=== PATIENT | male | born 1960 | race Caucasian/White ===

== ENCOUNTER 2020-01-09 10:32 | Day surgery (SDC) | payer BC ==
[2020-01-09] VITALS (9 sets, daily range): BP systolic 108–123; BP diastolic 57–89
[~2020-01-09] VITALS: Ht 180.3 cm; Wt 105.4 kg
[2020-01-09] MEDS ORDERED: normal saline 1,000 ML IV SCH ×2 (10:55→15:55)
[2020-01-09] MEDS ORDERED: diphenhydrAMINE 25mg capsule PO PRN (10:55)
[2020-01-09] MEDS ORDERED: LISI10TA4 PO (10:56)
[2020-01-09] MEDS ORDERED: ASPI-611 PO (11:04)
[2020-01-09 11:15] LABS: BASOPHILS % (AUTO) 0.5 % (0-1); EOSINOPHILS # (AUTO) 0.2 X10'3 (0-0.9); EOSINOPHILS % (AUTO) 2.5 % (0-6); HEMATOCRIT 49.1 % (42.0-52.0); HEMOGLOBIN 16.6 g/dl (14.0-17.9); LYMPHOCYTES # (AUTO) 2.2 X10'3 (1.1-4.8); LYMPHOCYTES % (AUTO) 30.1 % (21-51); MEAN CORPUSCULAR HGB CONC 33.9 g/dL (33.0-36.5); MEAN CORPUSCULAR VOLUME 91.5 FL (78-98); MEAN PLATELET VOLUME 9.5 FL (7.4-10.4); MONOCYTES # (AUTO) 0.5 X10'3 (0-0.9); MONOCYTES % (AUTO) 6.8 % (2-12); NEUTROPHILS # (AUTO) 4.4 X10'3 (1.8-7.7); NEUTROPHILS % (AUTO) 60.1 % (42-75); PLATELET COUNT 192 X10'3 (140-440); RED BLOOD COUNT 5.37 X10'6 (4.70-6.10); RED CELL DISTRIBUTION WIDTH 13.7 % (11.5-14.5); WHITE BLOOD COUNT 7.3 X10'3 (4.5-11.0)
[2020-01-09 11:28] LABS: ALBUMIN 4.1 G/DL (3.4-5.0); ANION GAP 9 (8-16); BLOOD UREA NITROGEN 13 MG/DL (7-18); BUN/CREATININE RATIO 11.9 (5.4-32.0); CHLORIDE 106 MMOL/L (99-107); CREATININE 1.09 MG/DL (0.60-1.10); GLUCOSE 109 MG/DL (70-104); MAGNESIUM 2.3 MG/DL (1.5-2.4); SODIUM 142 MMOL/L (135-145); TOTAL CARBON DIOXIDE 26.7 MMOL/L (24-32); eGFR 70 ML/MIN
[2020-01-09] MEDS ORDERED: iohexol 350MG/ML 100ml bottle IV ONE (14:23)
[2020-01-09] MEDS ORDERED: heparin 1,000unit/ml 10ml vial 10 ML ONE (14:23)
[2020-01-09] MEDS ORDERED: LIDOcaine 1% (10mg/ml)w/preservative injection 20ml MDV ONE (14:23)
[2020-01-09] MEDS ORDERED: midazolam 2 mg/2 ml injection ONE (14:23)
[2020-01-09] MEDS ORDERED: fentaNYL/PF 50MCG/1 ML 2ML syringe ONE (14:23)
[2020-01-09] MEDS ORDERED: iohexol 350 MG/ML 50ML vial IV ONE (14:23)
[2020-01-09] MEDS ORDERED: ondansetron/PF 4mg/2ml inj IV PRN (15:55)
[2020-01-09] MEDS ORDERED: HYDROcodone/acetaminophen 5mg/325mg tablet PO PRN (15:55)
[2020-01-09] MEDS ORDERED: HYDROcodone/acetaminophen 10/325mg tab PO PRN (15:55)
[2020-01-09] MEDS ORDERED: proCHLORperazine 10 MG/2 ml inj IV PRN (15:55)
== END 2020-01-09 18:30 | disposition home or self-care (01) ==
LOC: SSTAY O 10:32
PROVIDERS: ATTEND Internal Medicine Cardiovascular Disease
DX: R94.39 Abnormal result of other cardiovascular function study (principal); I25.10 Atherosclerotic heart disease of native coronary artery without angina pectoris; I10 Essential (primary) hypertension; Z79.01 Long term (current) use of anticoagulants; Z79.899 Other long term (current) drug therapy; Z79.82 Long term (current) use of aspirin
CPT/HCPCS: 36415; 80048; 83735; 85025; 85610; 93005; 93458; 99152; C1760; C1769; C1894; J1644; J2001; J2250; J3010; J7030; Q0163; Q9967; A4620; A6258

== ENCOUNTER 2023-12-20 08:33 | Inpatient (IN) | payer MEDICARE, MEDICAID ==
[2023-12-20] VITALS (17 sets, daily range): BP systolic 100–143; BP diastolic 61–79; PULSE 60–100; RESP 11–19; TEMP 96.8–98.4; O2SAT 92–100
[~2023-12-20] VITALS: Ht 180.3 cm; Wt 79.5 kg
[~2023-12-20 08:33] MED LIST: ASPI-611 PO; LISI10TA27 PO
[2023-12-20] MEDS ORDERED: OMEP20CA16 PO (08:38)
[2023-12-20] MEDS ORDERED: ALBU8HFA PO (09:02)
[2023-12-20] MEDS: HYDROmorphone 1 mg/ml syringe IV ONE ×2 (09:34→10:28)
[2023-12-20] MEDS: ondansetron/PF 4mg/2ml inj IV ONE (09:42)
[2023-12-20] MEDS: normal saline 1000ml 1,000 ML IV ONE (09:42)
[2023-12-20 09:45] LABS: BASOPHILS # (AUTO) 0.1 X10'3 (0-0.2); BASOPHILS % (AUTO) 0.3 % (0-1); EOSINOPHILS % (AUTO) 0 % (0-6); HEMATOCRIT 46.4 % (42.0-52.0); HEMOGLOBIN 15.4 g/dl (14.0-17.9); LYMPHOCYTES # (AUTO) 0.8 X10'3 (1.1-4.8); MEAN CORPUSCULAR HEMOGLOBIN 30.7 PG (27.0-31.0); MEAN CORPUSCULAR HGB CONC 33.1 g/dL (33.0-36.5); MEAN CORPUSCULAR VOLUME 92.8 FL (78-98); MEAN PLATELET VOLUME 10.6 FL (7.4-10.4); MONOCYTES # (AUTO) 0.5 X10'3 (0-0.9); MONOCYTES % (AUTO) 3.1 % (2-12); NEUTROPHILS # (AUTO) 15.4 X10'3 (1.8-7.7); NEUTROPHILS % (AUTO) 91.6 % (42-75); PLATELET COUNT 176 X10'3 (140-440); RED BLOOD COUNT 5.01 X10'6 (4.70-6.10); RED CELL DISTRIBUTION WIDTH 14.5 % (11.5-14.5); WHITE BLOOD COUNT 16.8 X10'3 (4.5-11.0)
[2023-12-20 09:51] LABS: ANION GAP 12 (8-16); BLOOD UREA NITROGEN 15 MG/DL (7-18); CALCIUM 8.9 MG/DL (8.5-10.1); CHLORIDE 105 MMOL/L (99-107); CREATININE 0.94 MG/DL (0.60-1.10); GLUCOSE 123 MG/DL (70-104); POTASSIUM 3.6 MMOL/L (3.5-5.1); SODIUM 140 MMOL/L (135-145); TOTAL CARBON DIOXIDE 23.3 MMOL/L (24-32); eCRCL 88 ML/MIN; eGFR 82 ML/MIN
[2023-12-20 09:52] LABS: APTT 24 SECONDS (22-32); PROTHROMBIN TIME 10.5 SECONDS (9.0-12.0)
[2023-12-20] MEDS ORDERED: acetaminophen 325mg tablet PO PRN ×2 (10:20)
[2023-12-20] MEDS ORDERED: magnesium hydroxide 30ml (MOM) UD suspension PO PRN (10:20)
[2023-12-20] MEDS ORDERED: magnesium 2GM in 50ml NS 50 ML IV PRN (10:20)
[2023-12-20] MEDS ORDERED: potassium Cl 40MEQ/1/2NS 520ml 520 ML IV PRN (10:20)
[2023-12-20] MEDS ORDERED: potassium Cl 20 mEq SR tablet PO PRN ×2 (10:20)
[2023-12-20] MEDS ORDERED: magnesium 4gm in 100ml NS 100 ML IV PRN (10:20)
[2023-12-20] MEDS ORDERED: mag hydrox/Alum hydrox/simeth 30ml oral suspension PO PRN (10:20)
[2023-12-20 10:30] LABS: BILIRUBIN,URINE NEGATIVE (Neg); CLARITY,URINE CLEAR (Clear); COLOR,URINE YELLOW (Yellow); GLUCOSE, URINE NEGATIVE (Neg); KETONES,URINE NEGATIVE (Neg); LEUKOCYTE ESTERASE ,URINE NEGATIVE (Neg); NITRITES, URINE NEGATIVE (Neg); OCCULT BLOOD,URINE NEGATIVE (Neg); PH,URINE 6.5 (4.8-8.0); PROTEIN,URINE NEGATIVE (Neg); UROBILINOGEN,URINE 0.2 E.U/dL (0.2-1.0)
[2023-12-20 10:31] LABS: UA COLLECTION TYPE NON-SPECIFIED
[2023-12-20] MEDS: normal saline 1000ml 1,000 ML IV SCH (10:45)
[2023-12-20 10:59] LABS: HEMOGLOBIN A1C 5.2 % (4.5-6.2)
[2023-12-20] MEDS: BUPIVAcaine 2.5mg/ml inj 50ml vial (contains preservative) ONE (11:04)
[2023-12-20] MEDS ORDERED: HYDROmorphone inj. 0.5 MG/0.5 ML DISP.SYRIN IV PRN (11:10)
[2023-12-20] MEDS ORDERED: meperidine/PF 25mg/ml syringe IV PRN (11:35)
[2023-12-20] MEDS: ringers solution, lacted 1,000 ML IV SCH (11:35)
[2023-12-20] MEDS ORDERED: proCHLORperazine 10 MG/2 ml inj IV PRN (11:35)
[2023-12-20] MEDS ORDERED: morphine 2 MG/ML inj. syringe IV PRN (11:35)
[2023-12-20] MEDS ORDERED: ondansetron/PF 4mg/2ml inj IV PRN (11:35)
[2023-12-20] MEDS ORDERED: fentaNYL/PF 50MCG/1 ML 2ML syringe ONE (11:37)
[2023-12-20] MEDS ORDERED: propofol inj 20 ML IV ONE (11:38)
[2023-12-20] MEDS ORDERED: midazolam 1 mg/ML 2ml injection ONE (11:38)
[2023-12-20] MEDS ORDERED: ceFAZolin 1000mg inj ONE ×2 (11:39→11:40)
[2023-12-20] MEDS ORDERED: sevoflurane 250ml liquid IH ONE (11:42)
[2023-12-20] MEDS: acetaminophen 1,000mg/100ml IV 100 ML IV ONE (13:24)
[2023-12-20] MEDS: meperidine/PF 25mg/ml syringe IV PRN ×2 (13:24→13:40)
[2023-12-20] MEDS: CefTRIAXone/D5W-Rocephin 1gm 50 ML IV SCH (14:24)
[2023-12-20] MEDS: K and/or MAG REPLACEMENT MC SCH (20:00)
[2023-12-20] MEDS: docusate sod 100mg capsule PO SCH (21:02)
[2023-12-20] MEDS: lisinopril 10 MG tablet PO SCH (21:06)
[2023-12-20] MEDS: HYDROmorphone/PF 0.2 MG/ML SYRINGE IV PRN (21:07)
[2023-12-21] VITALS (7 sets, daily range): BP systolic 107–119; BP diastolic 68–79; PULSE 67–95; RESP 16–20; TEMP 96.5–98.3; O2SAT 95–97
[2023-12-21] MEDS: pantoprazole 40mg Tablet.DR PO SCH (07:06)
[2023-12-21 07:08] LABS: BASOPHILS % (AUTO) 0.2 % (0-1); EOSINOPHILS % (AUTO) 0.4 % (0-6); HEMATOCRIT 44.5 % (42.0-52.0); HEMOGLOBIN 14.7 g/dl (14.0-17.9); LYMPHOCYTES # (AUTO) 1.3 X10'3 (1.1-4.8); LYMPHOCYTES % (AUTO) 12.3 % (21-51); MEAN CORPUSCULAR HEMOGLOBIN 30.9 PG (27.0-31.0); MEAN CORPUSCULAR HGB CONC 33.1 g/dL (33.0-36.5); MEAN CORPUSCULAR VOLUME 93.4 FL (78-98); MEAN PLATELET VOLUME 9.8 FL (7.4-10.4); MONOCYTES # (AUTO) 0.6 X10'3 (0-0.9); NEUTROPHILS # (AUTO) 8.3 X10'3 (1.8-7.7); NEUTROPHILS % (AUTO) 81.1 % (42-75); PLATELET COUNT 151 X10'3 (140-440); RED BLOOD COUNT 4.77 X10'6 (4.70-6.10); RED CELL DISTRIBUTION WIDTH 14.6 % (11.5-14.5); WHITE BLOOD COUNT 10.3 X10'3 (4.5-11.0)
[2023-12-21] MEDS: morphine 4 MG/ML inj SYRINge IV PRN (09:39)
[2023-12-21] MEDS: ondansetron/PF 4mg/2ml inj IV PRN (09:48)
[2023-12-21 18:27] LABS: ALANINE AMINOTRANSFERASE 17 U/L (12-78); ALBUMIN 3.6 G/DL (3.4-5.0); ALBUMIN/GLOBULIN RATIO 0.9 (1.1-1.5); ALKALINE PHOSPHATASE 47 IU/L (46-116); ANION GAP 6 (8-16); ASPARTATE AMINO TRANSFERASE 13 U/L (10-37); BLOOD UREA NITROGEN 10 MG/DL (7-18); BUN/CREATININE RATIO 12.5 (10.0-20.0); CHLORIDE 103 MMOL/L (99-107); GLUCOSE 106 MG/DL (70-104); POTASSIUM 3.8 MMOL/L (3.5-5.1); SODIUM 139 MMOL/L (135-145); TOTAL CARBON DIOXIDE 30.5 MMOL/L (24-32); TOTAL PROTEIN 7.6 G/DL (6.4-8.2); eCRCL 103 ML/MIN; eGFR > 90 ML/MIN
[2023-12-22] MEDS: HYDROcodone/acetaminophen 5mg/325mg tablet PO PRN (05:42)
[2023-12-22 06:00] VITALS: BP 112/75; PULSE 94; RESP 16; TEMP 98.2; O2SAT 97
[2023-12-22 08:34] LABS: BASOPHILS % (AUTO) 0.3 % (0-1); EOSINOPHILS % (AUTO) 0.5 % (0-6); HEMOGLOBIN 15.5 g/dl (14.0-17.9); LYMPHOCYTES # (AUTO) 1.3 X10'3 (1.1-4.8); MEAN CORPUSCULAR HEMOGLOBIN 31.2 PG (27.0-31.0); MONOCYTES # (AUTO) 0.7 X10'3 (0-0.9); RED BLOOD COUNT 4.97 X10'6 (4.70-6.10); RED CELL DISTRIBUTION WIDTH 14.2 % (11.5-14.5)
[2023-12-22 08:36] LABS: HEMATOCRIT 46.1 % (42.0-52.0); MEAN CORPUSCULAR HGB CONC 33.7 g/dL (33.0-36.5); MEAN CORPUSCULAR VOLUME 92.7 FL (78-98); NEUTROPHILS # (AUTO) 7.9 X10'3 (1.8-7.7); NEUTROPHILS % (AUTO) 79.2 % (42-75); PLATELET COUNT 153 X10'3 (140-440)
[2023-12-22 09:41] LABS: ALANINE AMINOTRANSFERASE 17 U/L (12-78); ALBUMIN 3.7 G/DL (3.4-5.0); ALBUMIN/GLOBULIN RATIO 0.9 (1.1-1.5); ALKALINE PHOSPHATASE 48 IU/L (46-116); ANION GAP 10 (8-16); ASPARTATE AMINO TRANSFERASE 23 U/L (10-37); BLOOD UREA NITROGEN 13 MG/DL (7-18); BUN/CREATININE RATIO 15.7 (10.0-20.0); CALCIUM 9.1 MG/DL (8.5-10.1); CHLORIDE 104 MMOL/L (99-107); CREATININE 0.83 MG/DL (0.60-1.10); GLUCOSE 120 MG/DL (70-104); POTASSIUM 4.2 MMOL/L (3.5-5.1); SODIUM 139 MMOL/L (135-145); TOTAL CARBON DIOXIDE 25.2 MMOL/L (24-32); TOTAL PROTEIN 7.8 G/DL (6.4-8.2); eCRCL 100 ML/MIN; eGFR > 90 ML/MIN
[2023-12-22 10:00] VITALS: BP 112/78; PULSE 76; RESP 16; TEMP 97.4; O2SAT 98
[2023-12-22 11:14] VITALS: RESP 18; O2SAT 97
[2023-12-22] MEDS ORDERED: heparin, porcine 5000 units/ml vial SQ SCH (16:00)
[2023-12-22] MEDS ORDERED: ASPI-100 PO (16:19)
[2023-12-22 17:28] VITALS: RESP 20
[2023-12-22] MEDS ORDERED: HYDR-3965 PO (18:06)
== END 2023-12-22 17:46 | disposition home or self-care (01) | DRG 482 ==
LOC: ER 08:33 → ED HOLD 10:25 → ORTHO 4S 14:36
PROVIDERS: ADMIT Internal Medicine; ATTEND Internal Medicine
PROC: 0QH634Z Insertion of Internal Fixation Device into Right Upper Femur, Percutaneous Approach (ICD-10-PCS; principal; 2023-12-20 11:42)
DX: S72.001A Fracture of unspecified part of neck of right femur, initial encounter for closed fracture (principal); I25.10 Atherosclerotic heart disease of native coronary artery without angina pectoris; S09.8XXA Other specified injuries of head, initial encounter; W18.39XA Other fall on same level, initial encounter; I10 Essential (primary) hypertension; Z20.822 Contact with and (suspected) exposure to COVID-19; D72.829 Elevated white blood cell count, unspecified; F41.9 Anxiety disorder, unspecified; K21.9 Gastro-esophageal reflux disease without esophagitis; Y93.89 Activity, other specified; Z87.891 Personal history of nicotine dependence; Z79.82 Long term (current) use of aspirin; Z79.899 Other long term (current) drug therapy; I25.2 Old myocardial infarction; Z95.5 Presence of coronary angioplasty implant and graft; Z90.49 Acquired absence of other specified parts of digestive tract; Y92.89 Other specified places as the place of occurrence of the external cause; Y99.8 Other external cause status; Z88.5 Allergy status to narcotic agent
CPT/HCPCS: 36415; 70450; 71045; 73502; 76000; 80048; 80053; 81003; 83036; 83605; 83735; 84132; 84145; 85025; 85610; 85730; 86885; 86900; 86901; 87040; 87502; 87503; 87811; 93005; 93306; 96374; 96375; 97116; 97161; 97530; 99285; A4618; A7000; C1713; C1769; G0378; J0131; J0690; J0696; J1170; J2175; J2250; J2270; J2405; J2704; J3010; J3490; J7030